=== PATIENT | female | born 1985 | race Caucasian/White ===

== ENCOUNTER 2016-08-11 15:52 | Emergency (ER) | payer SELFPAY | END 2016-08-11 16:45 | disposition home or self-care (01) | LOC: ER 15:52 | DX: F41.0 Panic disorder [episodic paroxysmal anxiety] (principal); F19.939 Other psychoactive substance use, unspecified with withdrawal, unspecified; F32.9 Major depressive disorder, single episode, unspecified; F17.210 Nicotine dependence, cigarettes, uncomplicated; Z79.899 Other long term (current) drug therapy; Z88.8 Allergy status to other drugs, medicaments and biological substances ==

== ENCOUNTER 2016-08-20 11:59 | Emergency (ER) | payer OTHER | END 2016-08-20 13:18 | disposition home or self-care (01) | LOC: ER 11:59 | DX: Z76.0 Encounter for issue of repeat prescription (principal); G43.909 Migraine, unspecified, not intractable, without status migrainosus; F31.9 Bipolar disorder, unspecified; F41.9 Anxiety disorder, unspecified; F17.210 Nicotine dependence, cigarettes, uncomplicated; Z79.899 Other long term (current) drug therapy; Z88.8 Allergy status to other drugs, medicaments and biological substances ==